=== PATIENT | male | born 1960 | race Caucasian/White ===

== ENCOUNTER 2017-09-30 11:14 | Day surgery (SDC) | payer BC ==
[~2017-09-30] VITALS: Ht 180.3 cm; Wt 86.0 kg
[2017-09-30 11:46] VITALS: BP 153/85
[2017-09-30] MEDS ORDERED: MIDAZOLAM 1 MG/ML, 2ML ONE (12:31)
[2017-09-30] MEDS ORDERED: DEXAMETHASONE 4 MG/ML, 1ML ONE (12:33)
[2017-09-30] MEDS ORDERED: PROPOFOL 10 MG/ML, 20ML ONE (12:33)
[2017-09-30] MEDS ORDERED: ONDANSETRON 2MG/ML, 2ML ONE (12:33)
[2017-09-30] MEDS ORDERED: KETOROLAC 30 MG/1 ML IV PRN (14:00)
[2017-09-30] MEDS ORDERED: PROMETHAZINE 25 MG/ML, 1ML IV PRN (14:00)
[2017-09-30] MEDS ORDERED: ACETAMINOPHEN 325 MG TABLET PO PRN (14:00)
[2017-09-30] MEDS ORDERED: EPHEDRINE 50 MG/ML, 1ML IVPush PRN (14:00)
[2017-09-30] MEDS ORDERED: ONDANSETRON 2MG/ML, 2ML IV PRN (14:00)
[2017-09-30] MEDS ORDERED: ALBUTEROL SULFATE 2.5 MG/3 ML NPPB PRN (14:00)
== END 2017-09-30 15:10 ==
LOC: OUT 11:14 → EDSTATUS 13:00 → OUT 15:10
PROVIDERS: ATTEND Orthopaedic Surgery
DX: M24.672 Ankylosis, left ankle (principal); M65.872 Other synovitis and tenosynovitis, left ankle and foot; Z96.641 Presence of right artificial hip joint
CPT/HCPCS: 73721; J1100; J2250; J2405; J2704

== ENCOUNTER 2019-08-13 06:22 | Day surgery (SDC) | payer MEDICAID ==
[~2019-08-13] VITALS: Ht 179.1 cm; Wt 86.5 kg
[2019-08-13] MEDS ORDERED: LIPITOR PO (07:03)
[2019-08-13] MEDS ORDERED: DEXT10TA7 PO (07:03)
[2019-08-13] MEDS ORDERED: TADA5TAB2 PO (07:03)
[2019-08-13] MEDS ORDERED: LACTATED RINGERS 1,000 ML IV SCH (07:03)
[2019-08-13 07:23] VITALS: BP 151/90
[2019-08-13] MEDS ORDERED: PLEASE ENTER HEIGHT AND WEIGHT MC SCH (07:30)
[2019-08-13] MEDS ORDERED: CHLORHEXIDINE 15 ML UDC MM ONE (07:30)
[2019-08-13] MEDS ORDERED: GADOTERATE 7.5 MMOL/15 ML SYR ONE (08:00)
[2019-08-13] MEDS ORDERED: MIDAZOLAM 1 MG/ML, 2ML ONE (10:35)
[2019-08-13] MEDS ORDERED: PROPOFOL 10 MG/ML, 20ML ONE (11:28)
[2019-08-13] MEDS ORDERED: SUCCINYLCHOLINE 20 MG/ML, 10ML ONE (11:28)
== END 2019-08-13 13:30 | disposition home or self-care (01) ==
LOC: OUT 06:22 → EDSTATUS 08:00 → OUT 13:30
DX: M25.551 Pain in right hip (principal); Z11.59 Encounter for screening for other viral diseases; M48.061 Spinal stenosis, lumbar region without neurogenic claudication; M25.78 Osteophyte, vertebrae; Z96.643 Presence of artificial hip joint, bilateral
CPT/HCPCS: 72158; 93005; A9575; J0330; J2250; J2704; J7120; U0001